=== PATIENT | female | born 1990 | race Caucasian/White ===

== ENCOUNTER 2019-01-21 08:53 | Emergency (ER) | payer OTHER ==
[2019-01-21 09:01] VITALS: BP 103/70
[2019-01-21] MEDS ORDERED: KETOROLAC TROMETHAMINE 60 MG/2 ML SDV IM ONE (09:15)
--- NOTE | 2019-01-21 09:18 | ER Document Report ---
ED Medical Screen (RME) - General Chief Complaint: Back Pain Stated Complaint: LEG PAIN Time Seen by Provider: 01/21/19 09:12 Mode of Arrival: Ambulatory Information source: Patient Notes: Patient is an otherwise healthy 28-year-old female who presents to the emergency department with chief complaint of low back pain and numbness down the back of her left leg. She reports heavy lifting at the gym on Thursday, states that pain has gotten progressively worse until this morning when she states her leg went completely numb. Denies any bowel incontinence, denies any urinary retention or saddle anesthesia. Patient reports history of sciatica in the past, states this feels completely different. Patient reports she took a Flexeril last night with no relief. Exam: Patient ambulates with relatively steady gait. Patient alert, oriented with no acute distress noted. I have greeted and performed a rapid initial assessment of this patient. A comprehensive ED assessment and evaluation of the patient, analysis of test results and completion of the medical decision making process will be conducted by additional ED providers. Dictation of this chart was performed using voice recognition software; therefore, there may be some unintended grammatical errors. TRAVEL OUTSIDE OF THE [place] IN LAST 30 DAYS: No - Related Data Allergies/Adverse Reactions: amoxicillin Allergy (Verified 01/21/19 08:54) clindamycin Allergy (Verified 01/21/19 08:54) Penicillins Allergy (Verified 01/21/19 08:54) Physical Exam - Vital signs Vitals: Temp Pulse Resp BP Pulse Ox 97.4 F 98 17 103/70 99 01/21/19 08:59 01/21/19 08:59 01/21/19 08:59 01/21/19 08:59 01/21/19 08:59 Course - Vital Signs Vital signs: Temp Pulse Resp BP Pulse Ox 97.4 F 98 17 103/70 99 01/21/19 08:59 01/21/19 08:59 01/21/19 08:59 01/21/19 08:59 01/21/19 08:59
[2019-01-21] MEDS ORDERED: OXYCODONE-ACETAMINOPHEN 5-325 MG TABLET PO ONE (10:46)
--- NOTE | 2019-01-21 11:18 | RADIOLOGY REPORT (SQ) ---
EXAM DESCRIPTION: L SPINE WHOLE COMPLETED DATE/TIME: 01/21/2019 11:04 am REASON FOR STUDY: low back pain with radiation left leg COMPARISON: None. NUMBER OF VIEWS: Five views including obliques. TECHNIQUE: AP, lateral, oblique, and sacral radiographic images acquired of the lumbar spine. LIMITATIONS: None. FINDINGS: MINERALIZATION: Normal. SEGMENTATION: Normal. No transitional anatomy. ALIGNMENT: Normal. VERTEBRAE: Maintained height. No fracture or worrisome bone lesion. DISCS: Mild disc space loss of height at L5-S1. POSTERIOR ELEMENTS: Pedicles and facets are intact. No pars defect or posterior arch defects. Mild bilateral facet arthropathy at L4-5 and L5-S1. HARDWARE: None in the spine. PARASPINAL SOFT TISSUES: Normal. PELVIS: Intact as visualized. No fractures or worrisome bone lesions. SI joints intact. OTHER: No other significant finding. IMPRESSION: Mild degenerative disc changes and facet arthropathy at L5-S1 TECHNICAL DOCUMENTATION: JOB ID: [id number] [employer]- All Rights Reserved Reading location - IP/workstation name: [email or web address]
[2019-01-21 11:35] LABS: APPEARANCE,URINE CLEAR; BILIRUBIN,URINE NEGATIVE (NEGATIVE); COLOR,URINE YELLOW; GLUCOSE, URINE NEGATIVE (NEGATIVE); KETONES,URINE NEGATIVE (NEGATIVE); LEUKOCYTE ESTERASE,URINE NEGATIVE (NEGATIVE); NITRITE,URINE NEGATIVE (NEGATIVE); PROTEIN,URINE NEGATIVE (NEGATIVE); URINE SPECIFIC GRAVITY 1.018
--- NOTE | 2019-01-21 12:21 | ER Document Report ---
ED General Pain - General Chief Complaint: Back Pain Stated Complaint: LEG PAIN Time Seen by Provider: 01/21/19 09:12 Mode of Arrival: Ambulatory Information source: Patient Notes: Patient is a 28-year-old female comes into emergency room complaining of low back pain with radiation down the left leg. Patient states that this started on Thursday after she had been lifting weights at the gym she felt a twinge in her back of her left hamstring area. And thought that she was pulsatile. Thursday it got a little bit better she just did some light stretching no major problems. Thursday she went back to the gym she started lifting again she squatted 130 pounds and she did lifted slightly more. She does not use a lifting belt when she does heavy lifting. That night she started feeling the pain increasing by she was in really bad pain she attempted to take some Flexeril that she had approximately 2 years old and it did nothing for her last night so she is here today for evaluation. She states that the pain is running down the back of her leg to the front of the knee and down the left leg to the foot. Ends at the heel. Patient denies any loss of urine or stool he has no saddle paresthesia noted. TRAVEL OUTSIDE OF THE [place] IN LAST 30 DAYS: No - HPI Onset: Last week Onset/Duration: Gradual, Worse Quality of pain: Cramping, Sharp Severity: Severe Pain Level: 4 Context: New onset Typical of prior episodes of painful crisis: No Last crisis: 2 years ago Associated symptoms: None Exacerbated by: Sitting, Standing, Movement, Walking Relieved by: Denies Similar symptoms previously: Yes Recently seen / treated by doctor: No - Related Data Allergies/Adverse Reactions: amoxicillin Allergy (Verified 01/21/19 08:54) clindamycin Allergy (Verified 01/21/19 08:54) Penicillins Allergy (Verified 01/21/19 08:54) Past Medical History - General Information source: Patient - She - Social History Smoking Status: Never Smoker Cigarette use (# per day): No Chew tobacco use (# tins/day): No Smoking Education Provided: No Frequency of alcohol use: None Drug Abuse: None 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 Lives with: Alone Family History: Reviewed & Not Pertinent Patient has suicidal ideation: No Patient has homicidal ideation: No Renal/ Medical History: Denies: Hx Peritoneal Dialysis Review of Systems - Review of Systems Constitutional: No symptoms reported EENT: No symptoms reported Cardiovascular: No symptoms reported Respiratory: No symptoms reported Gastrointestinal: No symptoms reported Genitourinary: No symptoms reported Female Genitourinary: No symptoms reported Musculoskeletal: See HPI, Back pain Skin: No symptoms reported Hematologic/Lymphatic: No symptoms reported Neurological/Psychological: No symptoms reported -: Yes All other systems reviewed and negative Physical Exam - Vital signs Vitals: Temp Pulse Resp BP Pulse Ox 97.4 F 98 17 103/70 99 01/21/19 08:59 01/21/19 08:59 01/21/19 08:59 01/21/19 08:59 01/21/19 08:59 Interpretation: Normal - Notes Notes: PHYSICAL EXAMINATION: GENERAL: well-nourished and in no acute distress. Although she appears in moderate discomfort. Cannot find a position of comfort HEAD: Atraumatic, normocephalic. EYES: Pupils equal round and reactive to light, extraocular movements intact, conjunctiva are normal. ENT: Nares patent, oropharynx clear without exudates. Moist mucous membranes. NECK: Normal range of motion, supple without lymphadenopathy LUNGS: Breath sounds clear to auscultation bilaterally and equal. No wheezes rales or rhonchi. HEART: Regular rate and rhythm without murmurs ABDOMEN: Soft, nontender, nondistended abdomen. No guarding, no rebound. No masses appreciated. Female : deferred Musculoskeletal: Examination patient's area of concern is her down her left leg. Examination of the back shows some mild tenderness that is reproducible paravertebrally around L4-L5. Also included S1. Patient also has notable tenderness around mid buttocks around the sciatic notch area. On palpation to the area also since pain or numbness down the back of the hamstring and to the left side of the knee. Patient has positive straight leg raise on the left side about 25 to 30 degrees. She has good DTRs in bilateral lower extremities. She has good popliteal pulses good dorsalis pedal pulse and good cap refill in the toes of the left leg and foot. NEUROLOGICAL: Normal speech, normal gait. Normal sensory, motor exams PSYCH: Normal mood, normal affect. SKIN: Warm, Dry, normal turgor, no rashes or lesions noted. Course - Re-evaluation Re-evalutation: 01/21/19 12:24 Patient lumbar spine showed that she has degenerative changes at L5 5 S1 and that was probably where her discomfort and sciatica is coming from. No doubt she will need an MRI down the line. I did have a long talk with her about weight lifting and using protection i.e. weight belt for lifts and squats. Patient got relief with the Toradol and a little pain medication. I cannot narrow down any closer than sciatica versus piriformis syndrome. It is possible it could be the piriformis. She also has some tenderness along the back of the hamstring this could be a slight defect from a muscle tear there is any pain downward so may be 2 possibilities of things happening. Getting rate patient is being discharged home with my standard of care being on muscle relaxer, steroid taper, and a little pain medication. 01/21/19 12:59 I did look patient up on the [facility] aware drug line and she does not display any type of drug-seeking or doctor shopping behavior. I have informed her of the possibilities of these narcotics causing dependency and problems with withdrawal afterwards. She understands totally and is willing to take that chance and risk at this time for the reduction in pain. - Vital Signs Vital signs: Temp Pulse Resp BP Pulse Ox 97.4 F 98 17 103/70 99 01/21/19 08:59 01/21/19 08:59 01/21/19 08:59 01/21/19 08:59 01/21/19 08:59 - Laboratory Laboratory results interpreted by me: 01/21/19 11:15 Urine Urobilinogen 2.0 H Discharge - Discharge Clinical Impression: Sciatica of left side, Piriformis syndrome of left side Disposition: HOME, SELF-CARE Instructions: Ice Packs ([facility]), Low Back Pain ([facility]), Muscle Strain ([facility]), Oral Narcotic Medication ([facility]), Sciatica ([facility]) Additional Instructions: Home warm compresses in the senior internal auditor with stretching afterward and ice packs in the afternoon and evenings. Medications prescribed contact your local primary care physician for MRI to delineate where the cause is coming from. Should you have any loss of urine or stool should you have difficulty walking or your foot seems like you can pick it up or you have any concern at all return to ER for recheck this weekend. Prescriptions: Cyclobenzaprine HCl [Flexeril 10 mg Tablet] 10 mg PO TIDP PRN #21 tablet PRN Reason: Prednisone [Deltasone 10 mg Tablet] 10 mg PO ASDIR PRN #21 tablet PRN Reason: Tramadol HCl [Ultram 50 mg Tablet] 50 mg PO ASDIR PRN #20 tablet PRN Reason:
== END 2019-01-21 13:07 | disposition home or self-care (01) ==
LOC: ER 08:53
DX: G57.02 Lesion of sciatic nerve, left lower limb (principal); M54.42 Lumbago with sciatica, left side; X50.0XXA Overexertion from strenuous movement or load, initial encounter; Y93.B9 Activity, other involving muscle strengthening exercises; Y92.39 Other specified sports and athletic area as the place of occurrence of the external cause; M47.9 Spondylosis, unspecified; Z88.0 Allergy status to penicillin; Z88.1 Allergy status to other antibiotic agents
CPT/HCPCS: 99283; 96372; 81025; 81001; 72110; J1885